=== PATIENT | male | born 1940 | race Caucasian/White ===

== ENCOUNTER 2016-11-07 07:14 | Day surgery (SDC) | payer MEDICARE, OTHER ==
[~2016-11-07] VITALS: Ht 188.1 cm; Wt 107.7 kg
[2016-11-07] VITALS (13 sets, daily range): BP systolic 111–155; BP diastolic 69–99; PULSE 67–78; TEMP 97.5
[~2016-11-07 07:14] MED LIST: ACIPHEX20 MG PO; ADVAIR 250/28 DISKUS IH; ALBUTEROL0.83 MG/ML IH; AMOXICILLIN/CLA1 TA1 PO; ASPIR-LOW81 MG PO; ASPIRIN 81M81 MG/TA2 PO; ATROVENT I0.2 MG/1 M IH; CELEBREX 200MG200 MG PO; COMBIVENT INH14.7 GM IH; COUMADIN; COUMADIN 1010 MG/TAB PO; COUMADIN 5MG5 MG/TAB PO; DIOVAN80 M1 PO; FLONASE NASAL S16 GM NS; FLONASEALLERGY NS; FLOVENT HF0.044 MG/A IH; IPRATROPIUM BROM3 M1 IH; LASIX 40MG TABL40 MG PO; LEVAQUIN 5500 MG/TA1 PO; LIPITOR 40MG TA40 MG PO; METOCLOPRAMIDE10 MG PO; MICARDIS20 MG PO; MICARDIS40 MG PO; MUCUS RELIEF DM1 TAB PO; NEXIUM 40MG40 MG PO; PHENERGAN 25 TA25 MG PO; PREDNISONE20 MG PO; REGLAN 10MG10 MG/TAB PO; RT ADVAIR 228 DISKUS IH; RT SPIRIVA18 MCG IH; SINGULAIR 110 MG/TAB PO; SINGULAIR10 MG PO; SPIRIVA INH IH; TOPROL XL 25MG25 MG PO; TOPROL XL100 MG PO; VITAMIN PO; ZOCOR 20MG20 MG PO
[2016-11-07 07:42] LABS: HEMATOCRIT 43.3 % (42.0-52.0); HEMOGLOBIN 14.1 g/dl (13.5-18.0); MEAN CELL VOLUME 87 fl (80.0-100.0); MEAN CORPUSCULAR HEMOGLOBIN 28 pg (27.0-31.0); MEAN CORPUSCULAR HGB CONC 33 g/dl (33.0-37.0); MEAN PLATELET VOLUME 9.5 fl (7.4-10.4); PLATELET COUNT 185 K/mm3 (130-400); RED BLOOD COUNT 4.96 M/mm3 (4.20-5.60); REDCELL DISTRIBUTION WIDTH-CV 13.8 % (11.5-14.5); WHITE BLOOD COUNT 4.8 K/mm3 (4.8-10.8)
[2016-11-07 07:49] LABS: INR 1.1 (0.8-3.0)
[2016-11-07 07:58] LABS: CALCIUM 9.6 mg/dL (8.4-10.2); CREATININE, serum 1.46 mg/dL (0.66-1.25); POTASSIUM 4.9 mmol/L (3.4-5.0)
[2016-11-07] MEDS ORDERED: RT SPIRIVA18 MCG IH (08:19)
[2016-11-07] MEDS ORDERED: COUMADIN 2MG2 MG/TAB PO (08:24)
== END 2016-11-07 17:10 | disposition home or self-care (01) ==
LOC: COL.CAR 07:14
PROVIDERS: Internal Medicine Cardiovascular Disease
DX: I25.10 Atherosclerotic heart disease of native coronary artery without angina pectoris (principal); R94.39 Abnormal result of other cardiovascular function study; Z95.5 Presence of coronary angioplasty implant and graft; I48.0 Paroxysmal atrial fibrillation; Z79.01 Long term (current) use of anticoagulants; E78.2 Mixed hyperlipidemia; I13.10 Hypertensive heart and chronic kidney disease without heart failure, with stage 1 through stage 4 chronic kidney disease, or unspecified chronic kidney disease; N18.4 Chronic kidney disease, stage 4 (severe); Z86.711 Personal history of pulmonary embolism; I35.8 Other nonrheumatic aortic valve disorders; G47.33 Obstructive sleep apnea (adult) (pediatric); I83.92 Asymptomatic varicose veins of left lower extremity; Z99.81 Dependence on supplemental oxygen; Z87.891 Personal history of nicotine dependence; H91.93 Unspecified hearing loss, bilateral; R73.01 Impaired fasting glucose
CPT/HCPCS: C1760; C1894; J2250; J3010; Q9967

== ENCOUNTER 2018-05-26 21:13 | Emergency (ER) | payer MEDICARE, OTHER ==
[~2018-05-26] VITALS: Ht 188 cm; Wt 105.5 kg
[~2018-05-26 21:13] MED LIST changes: +COUMADIN 2MG2 MG/TAB PO
[2018-05-26 21:19] VITALS: TEMP 97.6
[2018-05-26 22:02] LABS: BASO % 0.6 % (0.0-2.0); EOS % 0.6 % (0-4.0); GRAN # 4.3 (1.4-6.5); GRAN % 68.8 % (42.2-75.2); HEMOGLOBIN 11.2 g/dl (13.5-18.0); LYMPH # 1.3 (1.2-3.4); LYMPH % 20.8 % (20.0-51.0); MEAN CELL VOLUME 97 fl (80.0-100.0); MEAN CORPUSCULAR HEMOGLOBIN 31 pg (27.0-31.0); MEAN CORPUSCULAR HGB CONC 32 g/dl (33.0-37.0); MEAN PLATELET VOLUME 9.7 fl (7.4-10.4); MONO # 0.6 (0.1-0.6); MONO % 8.9 % (1.7-9.3); PLATELET COUNT 230 K/mm3 (130-400); RED BLOOD COUNT 3.63 M/mm3 (4.20-5.60); REDCELL DISTRIBUTION WIDTH-CV 13.5 % (11.5-14.5)
[2018-05-26 22:03] LABS: HEMATOCRIT 35.1 % (42.0-52.0)
[2018-05-26 22:04] LABS: INR 1.8 (0.8-3.0); PROTHROMBIN TIME 20.2 SECONDS (9.7-12.8)
[2018-05-26] MEDS ORDERED: FOSAMAX 70MG TA70 MG PO (22:07)
[2018-05-26] MEDS ORDERED: TOPROL XL 25MG25 MG PO (22:07)
[2018-05-26] MEDS ORDERED: ZANTAC 150MG T150 MG PO (22:08)
[2018-05-26] MEDS ORDERED: AZULFIDINE500 MG/TAB PO (22:08)
[2018-05-26 22:10] LABS: CALCIUM 9.2 mg/dL (8.4-10.2); CREATININE, serum 1.41 mg/dL (0.66-1.25); POTASSIUM 4.4 mmol/L (3.4-5.0)
[2018-05-27] MEDS ORDERED: NORCO 325 MG-51 TAB PO (00:24)
[2018-05-27 01:22] VITALS: BP 149/81; PULSE 81
== END 2018-05-27 01:20 | disposition home or self-care (01) ==
LOC: COL.ER 21:13
PROVIDERS: Emergency Medicine
DX: S01.81XA Laceration without foreign body of other part of head, initial encounter (principal); S41.112A Laceration without foreign body of left upper arm, initial encounter; S20.212A Contusion of left front wall of thorax, initial encounter; R91.1 Solitary pulmonary nodule; I10 Essential (primary) hypertension; I25.10 Atherosclerotic heart disease of native coronary artery without angina pectoris; Z79.01 Long term (current) use of anticoagulants; W18.39XA Other fall on same level, initial encounter; Y92.009 Unspecified place in unspecified non-institutional (private) residence as the place of occurrence of the external cause; Z79.51 Long term (current) use of inhaled steroids
CPT/HCPCS: A9284; Q9967

== ENCOUNTER → 2018-07-26 | Outpatient (CLI) | payer MEDICARE, OTHER ==
[~2018-07-26] VITALS: Ht 188 cm; Wt 111.1 kg
[2018-07-26] VITALS (15 sets, daily range): BP systolic 114–139; BP diastolic 67–92; PULSE 66–85; TEMP 97.5–98
[~2018-07-26] MED LIST changes: +AZULFIDINE500 MG/TAB PO; +FOSAMAX 70MG TA70 MG PO; +NORCO 325 MG-51 TAB PO; +ZANTAC 150MG T150 MG PO
[2018-07-26 09:59] LABS: INR 1.1 (0.8-3.0); PROTHROMBIN TIME 12.9 SECONDS (9.7-12.8)
--- NOTE | 2018-07-26 10:30 | NUR ---
PT BROUGHT INTO THE CT ROOM, MONITORING EQUIPMENT PLACED.
--- NOTE | 2018-07-26 10:35 | NUR ---
DR GILBERT PRESENT, TIMEOUT DONE.
--- NOTE | 2018-07-26 10:45 | NUR ---
PT DOING WELL. NO PAIN
--- NOTE | 2018-07-26 10:55 | NUR ---
PROCEDURE COMPLETED. MONITORING EQUIPMENT REMOVED. PT ASSISTED TO TRANSFER TO CART.
--- NOTE | 2018-07-26 11:12 | NUR ---
PT TRANSFERRED VIA BED TO EU ROOM 9. PT AWAKE, ALERT AND ORIENTED. PT DENIES ANY PAIN. PT ABLE TO TRANSFER TO EU BED WITHOUT DIFFICULTY. VS OBTAINED.
--- NOTE | 2018-07-26 11:19 | NUR ---
PT DID NOT RECEIVE ANY MEDICATION DURING CT LUNG BIOPSY.
--- NOTE | 2018-07-26 11:24 | NUR ---
NOTE FROM DR MEZA STATES PT MAY RESUME COUMADIN TONIGHT IF PROCEDURE UNEVENTFUL.
--- NOTE | 2018-07-26 11:24 | NUR ---
PT ABLE TO DRINK WATER WITHOUT DIFFICULTY.
--- NOTE | 2018-07-26 12:28 | NUR ---
PT SITTING UP IN BED, WATCHING TELEVISION. PT ALERT AND ORIENTED X3. PT DENIES ANY NEEDS AT THIS TIME.
--- NOTE | 2018-07-26 12:28 | NUR ---
PT AWAITING TO BE TAKEN BACK TO FRUIT LOADER MACHINE OPERATOR. PT DENIES ANY NEEDS AT THIS TIME.
--- NOTE | 2018-07-26 13:09 | NUR ---
RADIOLOGY PRESENT TO OBTAIN XRAY.
--- NOTE | 2018-07-26 13:26 | NUR ---
RECEIVED CALL FROM DR GILBERT. PT XRAY CLEAR. PT CAN BE DISCHARGED.
--- NOTE | 2018-07-26 13:41 | NUR ---
PT'S IV TO LEFT FOREARM REMOVED. PT ATE LUNCH WITHOUT DIFFICULTY. PT GETTING DRESSED AT THIS TIME.
--- NOTE | 2018-07-26 13:55 | NUR ---
DISCHARGE INSTRUCTIONS REVIEWED WITH PATIENT. EDUCATIONAL MATERIAL PROVIDED REGARDING CT LUNG BIOPSY. PT VERBALIZED UNDERSTANDING. ESCORTED PT TO FRONT ENTRANCE WHERE SON AWAITED. PT INSISTED ON WALKING WITH HIS WALKER TO ENTRANCE. PT AMBULATED WITHOUT DIFFICULTY. PT'S BELONGINGS TRANSFERRED WTIH PATIENT.
== END ==
LOC: COL.RAD 09:19
PROVIDERS: Internal Medicine Pulmonary Disease
DX: R91.8 Other nonspecific abnormal finding of lung field (principal)

== ENCOUNTER → 2018-07-31 | Outpatient (CLI) | payer MEDICARE, OTHER | LOC: COL.RAD 10:22 | DX: Z01.812 Encounter for preprocedural laboratory examination (principal); C34.90 Malignant neoplasm of unspecified part of unspecified bronchus or lung; J34.89 Other specified disorders of nose and nasal sinuses; G93.89 Other specified disorders of brain | CPT/HCPCS: A9585 ==

== ENCOUNTER 2018-08-14 08:22 | Day surgery (SDC) | payer MEDICARE, OTHER ==
[~2018-08-14] VITALS: Ht 187.9 cm; Wt 111.4 kg
[2018-08-14 09:21] VITALS: BP 113/61; PULSE 76; TEMP 98.2
[2018-08-14] MEDS ORDERED: MULTI VITAMINS1 TAB PO (09:42)
[2018-08-14] MEDS ORDERED: MUCUS RELIEF200 MG PO (09:48)
[2018-08-14] MEDS ORDERED: PROAIR HFA0.09 MG/AC IH (09:48)
[2018-08-14] MEDS ORDERED: PREDNISONE 5MG5 MG PO ×2 (09:50→09:51)
[2018-08-14 09:54] LABS: INR 1.8 (0.8-3.0); PROTHROMBIN TIME 21.2 SECONDS (9.7-12.8)
[2018-08-14 10:30] VITALS: BP 100/60; PULSE 76; TEMP 97.9
--- NOTE | 2018-08-14 10:30 | NUR ---
Patient brought back to bay 6. Vital signs stable. Alert and oritented x4. No cough noted. Denies any pain or nausea. States he would like a muffin and water. Tolerating food and drink well. Call pitts within reach, will continue to monitor.
[2018-08-14 10:45] VITALS: BP 120/67; PULSE 70
--- NOTE | 2018-08-14 10:45 | NUR ---
MD called in order to get discharge orders. states that he may take coumadin as normally scheduled.
--- NOTE | 2018-08-14 10:45 | NUR ---
Patient states he is feeling well and ready to go home. Vital signs remain stable at this time. Will conitnue to monitor.
[2018-08-14 11:00] VITALS: BP 105/74; PULSE 71
--- NOTE | 2018-08-14 11:00 | NUR ---
Vital signs stable. Patient states he is feeling well and ready to go home. Son called and informed to have patient be picked up. Discharge instructions reviewed with patient, all questions answered. IV discontinued per MD orders. Patient instructed that he may continue meds including coumadin as normally scheduled. Patient to get dressed at this time.
--- NOTE | 2018-08-14 11:24 | NUR ---
Patient wheeled down to [facility]. Patient has his own portable oxygen. To be driven home by eileen Pichardo.
--- NOTE | 2018-08-14 11:41 | NUR ---
Initial visit; Patient thanked Web Editor for offering God's blessings prior to his surgical procedure.
== END 2018-08-14 11:24 | disposition home or self-care (01) ==
LOC: SDCO 08:22
PROVIDERS: Internal Medicine Critical Care Medicine
DX: C34.12 Malignant neoplasm of upper lobe, left bronchus or lung (principal); J84.10 Pulmonary fibrosis, unspecified; G47.33 Obstructive sleep apnea (adult) (pediatric); Z99.81 Dependence on supplemental oxygen; Z86.711 Personal history of pulmonary embolism; I10 Essential (primary) hypertension; E78.00 Pure hypercholesterolemia, unspecified; Z87.891 Personal history of nicotine dependence; Z79.899 Other long term (current) drug therapy; Z79.82 Long term (current) use of aspirin; Z79.01 Long term (current) use of anticoagulants; Z95.5 Presence of coronary angioplasty implant and graft; I25.10 Atherosclerotic heart disease of native coronary artery without angina pectoris; K21.9 Gastro-esophageal reflux disease without esophagitis
CPT/HCPCS: J2704

== ENCOUNTER 2019-03-08 09:43 | Outpatient (CLI) | payer MEDICARE, OTHER ==
[2019-03-08] VITALS (13 sets, daily range): BP systolic 100–141; BP diastolic 64–85; PULSE 63–95
[~2019-03-08] VITALS: Ht 187.9 cm; Wt 114.3 kg
[~2019-03-08 09:43] MED LIST changes: +MUCUS RELIEF200 MG PO; +MULTI VITAMINS1 TAB PO; +PREDNISONE 5MG5 MG PO; +PROAIR HFA0.09 MG/AC IH
[2019-03-08] MEDS ORDERED: IPRATROPIUM BROM3 M1 IH (10:25)
[2019-03-08 11:13] LABS: INR 1.2 (0.8-3.0); PROTHROMBIN TIME 14.1 SECONDS (9.7-12.8)
--- NOTE | 2019-03-08 11:25 | NUR ---
PT PLACED ON LEFT LATERAL SIDE. 02 @ 3L/NC. MONITORING EQUIPMENT PLACED. IMAGES TAKEN AND SENT
--- NOTE | 2019-03-08 11:55 | NUR ---
Pt to EU 9 per w/c s/p lung bx. Pt resting well, family at bedside.
--- NOTE | 2019-03-08 11:55 | NUR ---
Pt is on O2 2L per NC at home. Pt currently on O2 2L per NC. Pt denies pain/soa.
--- NOTE | 2019-03-08 12:43 | NUR ---
THREE SAMPLES TAKEN AND PLACED INTO FORMALIN. PT IS DOING WELL. NO PAIN, COUGHING OR COLLAPSED LUNG. ALL MONITORING EQUIPMENT REMOVED. PT ASSISTED INTO WHEELCHAIR.
--- NOTE | 2019-03-08 14:28 | NUR ---
Pt has ambulated, voided and caroline PO intake s n/v. PIV removed with catheter intact.
--- NOTE | 2019-03-08 14:35 | NUR ---
Pt discharged per w/c by nurse with son.
== END 2019-03-08 15:09 | disposition home or self-care (01) ==
LOC: COL.RAD 09:43
PROVIDERS: Radiology Diagnostic Radiology
DX: C34.12 Malignant neoplasm of upper lobe, left bronchus or lung (principal); I10 Essential (primary) hypertension
CPT/HCPCS: 32107

== ENCOUNTER 2019-04-18 09:05 | Inpatient (IN) | payer MEDICARE, OTHER ==
[~2019-04-18] VITALS: Ht 185.4 cm; Wt 112.2 kg
[2019-04-18] VITALS (508 sets, daily range): BP systolic 125–135; BP diastolic 82–96; PULSE 91–98; TEMP 97.3–98; O2SAT 82–100
[2019-04-18 09:22] LABS: BASO % 0.2 % (0.0-2.0); GRAN # 9.5 (1.4-6.5); GRAN % 89.7 % (42.2-75.2); HEMATOCRIT 40.3 % (42.0-52.0); HEMOGLOBIN 12.1 g/dl (13.5-18.0); LYMPH # 0.5 (1.2-3.4); LYMPH % 4.3 % (20.0-51.0); MEAN CELL VOLUME 96 fl (80.0-100.0); MEAN CORPUSCULAR HEMOGLOBIN 29 pg (27.0-31.0); MEAN CORPUSCULAR HGB CONC 30 g/dl (33.0-37.0); MEAN PLATELET VOLUME 11.2 fl (7.4-10.4); MONO # 0.5 (0.1-0.6); PLATELET COUNT 198 K/mm3 (130-400); RED BLOOD COUNT 4.18 M/mm3 (4.20-5.60); REDCELL DISTRIBUTION WIDTH-CV 14.8 % (11.5-14.5)
[2019-04-18 09:41] LABS: ARTERIAL BLD GAS O2 SATURATION 94.3 % (92-100); ARTERIAL BLD GAS TCO2 CT 18.2; ARTERIAL BLOOD GAS BASE EXCESS -8.8 (-2-2); ARTERIAL BLOOD GAS HCO3 17.1 meq/L (22-26); ARTERIAL BLOOD GAS PCO2 36.7 mmHg (35-45); ARTERIAL BLOOD GAS PO2 82.9 mmHg (80-100); ARTERIAL BLOOD GAS pH 7.29 (7.35-7.45)
[2019-04-18 10:05] LABS: ALBUMIN 3.5 gm/dL (3.5-5.0); BILIRUBIN,TOTAL 1.5 mg/dL (0.0-1.0); C-REACTIVE PROTEIN 7.5 mg/dL (0.0-0.9); CALCIUM 9.3 mg/dL (8.4-10.2); CREATININE, serum 1.81 (0.66-1.25)
[2019-04-18 10:16] LABS: TROPONIN-I 0.056 ng/mL (0.000-0.035)
[2019-04-18 11:24] LABS: PROTHROMBIN TIME 124.5 SECONDS (9.7-12.8)
[2019-04-18 11:26] LABS: INR 9.9 (0.8-3.0)
--- NOTE | 2019-04-18 13:17 | NUR ---
MD Shahab notified pt arrival
[2019-04-18] MEDS ORDERED: PEPCID 20MG TAB20 MG PO (14:12)
--- NOTE | 2019-04-18 17:56 | NUR ---
Vancomycin Initial Dosing Pharmacy Note Ordering provider: Fe Gudino W., MD Indication/duration: possible pneumonia Relevant comorbidities: LABS: Crea= 1.81, est CrCl of 42 mL/min Recommendation: 1.5 gram load, then 1 gram IV q12h. Trough on 04/20 at 17:30. Loading dose: 1.5 grams Maintenance dose: 1 gram every 12 hours Trough goal: 15-20 ug/mL
[2019-04-19] VITALS (1081 sets, daily range): BP systolic 97–135; BP diastolic 72–91; PULSE 94–111; TEMP 97.4–97.8; O2SAT 75–100
[2019-04-19 05:21] LABS: BASO % 0.1 % (0.0-2.0); GRAN % 93.9 % (42.2-75.2); HEMOGLOBIN 11.2 g/dl (13.5-18.0); LYMPH # 0.3 (1.2-3.4); LYMPH % 2.9 % (20.0-51.0); MEAN CELL VOLUME 94 fl (80.0-100.0); MEAN CORPUSCULAR HEMOGLOBIN 29 pg (27.0-31.0); MEAN CORPUSCULAR HGB CONC 30 g/dl (33.0-37.0); MEAN PLATELET VOLUME 10.7 fl (7.4-10.4); MONO # 0.3 (0.1-0.6); MONO % 2.7 % (1.7-9.3); PLATELET COUNT 164 K/mm3 (130-400); RED BLOOD COUNT 3.91 M/mm3 (4.20-5.60); REDCELL DISTRIBUTION WIDTH-CV 14.6 % (11.5-14.5)
[2019-04-19 05:25] LABS: HEMATOCRIT 36.9 % (42.0-52.0)
[2019-04-19 05:30] LABS: ALBUMIN 3.1 gm/dL (3.5-5.0); BILIRUBIN,TOTAL 0.9 mg/dL (0.0-1.0); CALCIUM 8.5 mg/dL (8.4-10.2); CREATININE, serum 1.57 (0.66-1.25); TOTAL PROTEIN 7.1 gm/dL (6.4-8.2)
[2019-04-19 05:46] LABS: ARTERIAL BLD GAS O2 SATURATION 94.8 % (92-100); ARTERIAL BLD GAS TCO2 CT 23.7; ARTERIAL BLOOD GAS BASE EXCESS -2.3 (-2-2); ARTERIAL BLOOD GAS HCO3 22.5 meq/L (22-26); ARTERIAL BLOOD GAS PCO2 38.6 mmHg (35-45); ARTERIAL BLOOD GAS PO2 77.7 mmHg (80-100); ARTERIAL BLOOD GAS pH 7.38 (7.35-7.45)
[2019-04-19 05:50] LABS: INR 13.3 (0.8-3.0); PROTHROMBIN TIME 169.6 SECONDS (9.7-12.8)
--- NOTE | 2019-04-19 05:50 | NUR ---
Critical PT of 169.6 and inr of 13.3 reported to [facility]. no new orders given at this time.
--- NOTE | 2019-04-19 07:00 | NUR ---
BEDSIDE REPORT RECEIVED FROM MARGA DURHAM
--- NOTE | 2019-04-19 08:45 | NUR ---
ATTEMPTED TO REMOVE BIPAP AND PLACE PATIENT ON 9L/MIN OXYMASK. HE WAS OFF BIPAP FOR ABOUT 5 MINUTES AND ONLY MAINTAINED SPO2 OF 80-85%. PATIENT PLACED BACK ON BIPAP AND SPO2 CAME BACK UP TO 95%
--- NOTE | 2019-04-19 10:30 | NUR ---
THIS RN ASKED DR. NGUYEN IF PATIENT MAY DO BETTER WITH AIRVO. HE GIVES PERMISSION TO TRY AIRVO AND IF PATIENT IS MORE COMFORTABLE, THEN HE MAY STAY ON IT. RTYAEL, NOTIFIED OF THIS.
--- NOTE | 2019-04-19 11:08 | NUR ---
PACED PT ON AIRVO FIO2 50% 40LPM SPO2 94% HR 100 RR 22
--- NOTE | 2019-04-19 12:33 | NUR ---
Met with son Luis before and after team rounding. Luis does see improvement in his father's state and would like to continue supportive care at this time. Luis cared for his mother on hospice services last year until her in the home. Luis is aware that his father's life expectancy with the diagnosis of advanced lung cancer/COPD and with his recent collapse at home requiring CPR is short. He does not believe that his father would want aggressive treatment but is still continuing with antibiotics, bipap, IV fluids and did recieve Vit K for a very high INR. I did verify that [facility] will provide a bipap/trilogy for hospice care of a pt with a pulmonary diagnosis with Crystal at their office. Dr Chow did give son goal of reaching a plan for care today.
--- NOTE | 2019-04-19 13:44 | NUR ---
PAT alfred met with the patient and the patient's son, Luis to complete initial assessment. The patient lives in [facility] with Luis. The patient is on 3L of oxygen, has a CPAP, walker, transportation chair and for the past year has had sponge baths. The patient's PCP is Dr. Rollins and patient receives medications from [facility]. A pallative care consult was ordered for the patient. The patient's son reports they have had [facility] with the patient's and would like [facility] to care for the patient. The patient's son spoke to [facility] reports they can accommodate the BiPAP for the patient. PAT alfred spoke to Los with [facility] and they can support the BiPAP. PAT alfred faxed patient information to [facility]. PAT alfred collaborated the above information with the team and will continue to follow.
--- NOTE | 2019-04-19 15:33 | NUR ---
Los from [facility] reports they can accept the patient for hospice at home. fiscal services manager will continue to follow.
--- NOTE | 2019-04-19 15:41 | NUR ---
Advised per social services coordinator that decision has been made to proceed with hospice care at home with [facility] and that information has been provided. My last conversation with son involved questions about support of the caregiver, and extra support to help with 24hr/day coverage. I did discuss this as a concern with Los from [facility] when he inquired about the patient. Family is planning on supporting pt at home with bipap and this has been approved by [facility] I am told. Social work is managing this discharge.
--- NOTE | 2019-04-19 19:15 | NUR ---
REPORT GIVEN TO MARGA DELGADO. PATIENT ON BIPAP, GETTING BREATHING TREATMENT. CARE TURNED OVER AT THIS TIME.
--- NOTE | 2019-04-19 22:22 | NUR ---
Nurse heard alarm going off in patients room for low pulse oximetry. Upon entering room, patient was slumped over in bed with oxygen via AirVo pulled off and was cyanotic with blood running from his right arm. SARTHAK Yu and MARGA Reeves came in to room to help stabilize patient and place on Bipap. Patient responsive 20-30 seconds after placing on Bipap. Patient was observed to be incontient of stool. Patient became combative with staff, unable to be re-oriented. Multiple staff members in room at this time, attempting to assist with stabilizing patient. SARTHAK Yu notified son Luis of patient condition, stated he is on his way to see patient. Bed alarm in place, will contineut o monitor patient at this time.
--- NOTE | 2019-04-19 23:10 | NUR ---
Patient son, Luis came in to see patient. Patient has now become more coherent, able to state "he thought he was at home and was taking his CPAP off." Will continue to monitor.
[2019-04-20] VITALS (1283 sets, daily range): BP systolic 99–130; BP diastolic 62–90; PULSE 93–104; TEMP 97.8–98; O2SAT 31–100
[2019-04-20 05:25] LABS: CALCIUM 8.3 mg/dL (8.4-10.2); CREATININE, serum 1.76 (0.66-1.25); POTASSIUM 3.9 mmol/L (3.4-5.0); TOTAL PROTEIN 6.9 gm/dL (6.4-8.2)
[2019-04-20 05:27] LABS: GRAN # 7.9 (1.4-6.5); GRAN % 94.1 % (42.2-75.2); HEMOGLOBIN 10.5 g/dl (13.5-18.0); INR 2.2 (0.8-3.0); LYMPH # 0.2 (1.2-3.4); LYMPH % 2.5 % (20.0-51.0); MEAN CELL VOLUME 95 fl (80.0-100.0); MEAN CORPUSCULAR HEMOGLOBIN 29 pg (27.0-31.0); MEAN CORPUSCULAR HGB CONC 31 g/dl (33.0-37.0); MEAN PLATELET VOLUME 10.3 fl (7.4-10.4); MONO # 0.2 (0.1-0.6); MONO % 2.8 % (1.7-9.3); PLATELET COUNT 163 K/mm3 (130-400); PROTHROMBIN TIME 26.5 SECONDS (9.7-12.8); RED BLOOD COUNT 3.62 M/mm3 (4.20-5.60); REDCELL DISTRIBUTION WIDTH-CV 14.6 % (11.5-14.5)
[2019-04-20 05:30] LABS: HEMATOCRIT 34.3 % (42.0-52.0)
--- NOTE | 2019-04-20 07:20 | NUR ---
Report received from Dennys GRESHAM and care transfered.
--- NOTE | 2019-04-20 19:14 | NUR ---
Report given to Lala GRESHAM and care transfered.
--- NOTE | 2019-04-20 19:30 | NUR ---
Assessment complete; patient alert and oriented. Denies any pain at this time. Reports orthopnea, but denies feeling short of breath during assessment. Patient requested bandgages to skin tears on arms be changed. Removed old dressing and replaced with steri-strips and bandaids as needed. RT at bedside to see patient also. Will continue to monitor.
--- NOTE | 2019-04-20 21:40 | NUR ---
Called on-call pharmacist regarding vanco trough; ok to continue with current ordered dose.
[2019-04-21] VITALS (647 sets, daily range): BP systolic 101–125; BP diastolic 59–86; PULSE 95–111; TEMP 97.3–98.7; O2SAT 75–100
--- NOTE | 2019-04-21 04:45 | NUR ---
Removed BIPAP and replaced Airvo per patient request. Assisted with oral care. Patient easilly becomes short of breath with minimal activity. Will continue to monitor.
--- NOTE | 2019-04-21 07:15 | NUR ---
Bedside report given to MARGA Gooden. Patient care transfered.
--- NOTE | 2019-04-21 08:00 | NUR ---
Shift assessment complete at this time. Plan of care reviewed at bedside with patient. Additional time taken to address any other needs or concerns. Vitals stable at this time. Pt reports mile R side pain that alleviated after repositioning onto L side. Denies any other pains or discomforts at this time. Bed in low position, call light within reach, will continue to monitor.
[2019-04-21 09:38] LABS: HEMATOCRIT 32.7 % (42.0-52.0); HEMOGLOBIN 10.1 g/dl (13.5-18.0); MEAN CELL VOLUME 94 fl (80.0-100.0); MEAN CORPUSCULAR HEMOGLOBIN 29 pg (27.0-31.0); MEAN CORPUSCULAR HGB CONC 31 g/dl (33.0-37.0); MEAN PLATELET VOLUME 9.9 fl (7.4-10.4); PLATELET COUNT 136 K/mm3 (130-400); RED BLOOD COUNT 3.48 M/mm3 (4.20-5.60); REDCELL DISTRIBUTION WIDTH-CV 14.6 % (11.5-14.5)
[2019-04-21 09:52] LABS: CALCIUM 8.3 mg/dL (8.4-10.2); CREATININE, serum 1.32 (0.66-1.25); POTASSIUM 4.2 mmol/L (3.4-5.0)
--- NOTE | 2019-04-21 16:00 | NUR ---
Pt resting comfortably in bed. Denies pain or any other discomforts. Vitals stable at this time. Bed in low position, call light within reach, will continue to monitor.
--- NOTE | 2019-04-21 17:30 | NUR ---
PATIENT TO ROOM 309. SON IS AT BEDSIDE. ASSESSMENT COMPLETED. NUMEROUS SKIN TEARS TO BOTH ARMS.
--- NOTE | 2019-04-21 18:15 | NUR ---
IV IS LEAKING. STOPPED AND DCD WITH CATH INTACT. WILL RESTART
--- NOTE | 2019-04-21 19:53 | NUR ---
ASSESSMENT COMPLETE. 02 PER AIRVO. ROBERTS PATENT TO DD. DENIES PAIN. DENIES NEEDS AT THIS TIME.
[2019-04-22 03:05] VITALS: BP 117/69; PULSE 99; TEMP 97.7
[2019-04-22 06:22] LABS: HEMOGLOBIN 10.4 g/dl (13.5-18.0); MEAN CELL VOLUME 94 fl (80.0-100.0); MEAN CORPUSCULAR HEMOGLOBIN 29 pg (27.0-31.0); MEAN CORPUSCULAR HGB CONC 31 g/dl (33.0-37.0); MEAN PLATELET VOLUME 10.6 fl (7.4-10.4); PLATELET COUNT 143 K/mm3 (130-400); RED BLOOD COUNT 3.58 M/mm3 (4.20-5.60); REDCELL DISTRIBUTION WIDTH-CV 14.7 % (11.5-14.5)
[2019-04-22 06:23] LABS: ALBUMIN 2.8 gm/dL (3.5-5.0); BILIRUBIN,TOTAL 0.9 mg/dL (0.0-1.0); CALCIUM 8.5 mg/dL (8.4-10.2); CREATININE, serum 1.4 (0.66-1.25); POTASSIUM 4.3 mmol/L (3.4-5.0); TOTAL PROTEIN 6.4 gm/dL (6.4-8.2)
[2019-04-22 06:41] LABS: HEMATOCRIT 33.6 % (42.0-52.0)
[2019-04-22 07:40] LABS: BAND 6 % (0-10); LYMPHOCYTE 9 % (20.0-51.0); NEUTROPHILS 81 % (42.0-75.2); PLATELET ESTIMATE NORMAL (NORMAL)
[2019-04-22 07:57] VITALS: BP 116/60; PULSE 97; TEMP 97.7
[2019-04-22 08:02] LABS: INR 1.9 (0.8-3.0)
--- NOTE | 2019-04-22 10:07 | NUR ---
Assessment complete. Patient resting in bed at this time. Speaks very minimally but is pleasant. IV site CD&I, flushed well. High flow oxygen still flowing. zosyn running at 25 ml/hr. Lungs were very coarse at the bases, diminshed in the upper lobes. Pitting 2+ in his lower extremities but no pain or tenderness with palpation. Pt denied knee pain at this time. Water was provided per request. No further needs expressed at this time. Call light is in reach.
--- NOTE | 2019-04-22 10:30 | NUR ---
Initial visit; Patient thanked Blue Crabber for looking in on him and offering God's blessings.
--- NOTE | 2019-04-22 10:41 | NUR ---
Contacted son Luis who is also DPOA-HC about goals of care at this point. Currently Nixon is improving and son would like to continue with current treatment. Pt is enjoying the morning, feeling better by his report. Son will be up here later this morning and Dr Nino and the treatment team were advised of the results from this call.
--- NOTE | 2019-04-22 12:02 | NUR ---
Warfarin Initial Dosing Pharmacy Note Ordering Provider: Fe Gudino W., MD Indication: VTE Prophylaxis LABS: INR 1.9 Recommendation: Will restart Warfarin at 6 mg po qHS. Pharmacy will continue to monitor daily INR levels. Home Regimen: Warfarin 12 mg po qHS
[2019-04-22 12:28] VITALS: BP 103/65; PULSE 93; TEMP 98.6
--- NOTE | 2019-04-22 14:19 | NUR ---
Currently pt and family would like to complete current treatment. Pt is willing to work with physical therapy to try to get stronger and is aware that this may be a long process. Available options, including hospice with [facility] in the home were discussed along with rehab stay in local assisted or home health services if desired based on their goal. Right now they would like to see how he does over the next few days before deciding. [facility] is aware of possible discharge to home with hospice after son spoke with them and they recieved information from case management.
--- NOTE | 2019-04-22 16:11 | NUR ---
Water Systems Engineer spoke with Ameena, Palliative RN and Estefanía, Nurse Practitioner and at this time, patient and family would like to continue with treatment vs comfort care. SW notified Los at [facility] that patient will not discharge home with hospice today and will keep him updated. PT/OT ordered for patient. SW met with patient to review PT/OT recommendation for SNF vs Home with Home Health. SW provided Medicare.gov list of SNF's and HH agencies in patient's geographic location. VERONIKA will follow up on patient choice.
[2019-04-22 16:52] VITALS: BP 108/69; PULSE 102; TEMP 98.5
[2019-04-22 19:14] VITALS: BP 101/60; PULSE 97; TEMP 98
--- NOTE | 2019-04-22 20:04 | NUR ---
ASSESSMENT COMPLETE. RESTING IN BED, WATCHING TV. AIRVO PER HIGH FLOW N/C. ARMANDO TO VALERIE. DENIES NEEDS AT THIS TIME.
[2019-04-22 23:39] VITALS: BP 115/65; PULSE 94; TEMP 97.4
[2019-04-23 03:28] VITALS: BP 101/66; PULSE 87; TEMP 98.7
[2019-04-23 06:15] LABS: HEMOGLOBIN 10.7 g/dl (13.5-18.0); MEAN CELL VOLUME 93 fl (80.0-100.0); MEAN CORPUSCULAR HEMOGLOBIN 29 pg (27.0-31.0); MEAN CORPUSCULAR HGB CONC 31 g/dl (33.0-37.0); MEAN PLATELET VOLUME 10.3 fl (7.4-10.4); PLATELET COUNT 148 K/mm3 (130-400); RED BLOOD COUNT 3.67 M/mm3 (4.20-5.60); REDCELL DISTRIBUTION WIDTH-CV 14.7 % (11.5-14.5)
[2019-04-23 06:25] LABS: INR 1.7 (0.8-3.0); PROTHROMBIN TIME 19.6 SECONDS (9.7-12.8)
[2019-04-23 06:26] LABS: HEMATOCRIT 34.2 % (42.0-52.0)
[2019-04-23 06:39] LABS: ALBUMIN 2.8 gm/dL (3.5-5.0); CALCIUM 8.7 mg/dL (8.4-10.2); CREATININE, serum 1.42 (0.66-1.25); POTASSIUM 4.2 mmol/L (3.4-5.0); TOTAL PROTEIN 6.3 gm/dL (6.4-8.2)
--- NOTE | 2019-04-23 08:00 | NUR ---
Patient resting in bed at this time. Patient rouses easily and responds appropriately while awake. Melo in place per order. Patient remains on Airvo at 10L. Patient denies pain or needs at this time, call light within reach.
[2019-04-23 08:01] LABS: BAND 4 % (0-10); HYPOCHROMIA 2+; LYMPHOCYTE 12 % (20.0-51.0); MYELOCYTE 0 % (0-0); NEUTROPHILS 83 % (42.0-75.2)
[2019-04-23 08:02] LABS: PLATELET ESTIMATE NORMAL (NORMAL); TOXIC GRANULATION PRESENT
[2019-04-23 08:30] VITALS: BP 87/56; PULSE 101; TEMP 97.8
[2019-04-23 12:18] VITALS: BP 103/60; PULSE 88; TEMP 98.8
--- NOTE | 2019-04-23 16:02 | NUR ---
Newsroom Intern spoke with Hospitalist and Estefanía, Nurse Practitioner who would like for patient to consider referral to [facility] in [place]. Estefanía followed up with SW and advised that patient declined at this time but that family would like for patient to consider [facility]. Family will have this discussion with patient. SW will not send referral at this time as patient is not in agreeance. SW to continue to follow.
--- NOTE | 2019-04-23 17:13 | NUR ---
Patient remains alert and oriented at this time. Melo in place per order, patient on O2 at 8L via high flow NC. Patient continues to deny pain or needs, call light within reach.
[2019-04-23 17:30] VITALS: BP 133/69; PULSE 94; TEMP 98.5
--- NOTE | 2019-04-23 19:05 | NUR ---
Report rcvd from MINERVA Beckham. Pt is laying in bed with 8L o2 via High Flow NC. Pt has no pain, and voices no concerns at this time. Assessment complete. No further concerns at this time.
[2019-04-23 20:34] VITALS: BP 119/56; PULSE 88; TEMP 98.5
[2019-04-24 00:20] VITALS: BP 131/71; PULSE 92; TEMP 98
[2019-04-24 03:05] VITALS: BP 114/67; PULSE 87; TEMP 98
[2019-04-24 08:05] VITALS: BP 132/72; PULSE 80; TEMP 97.5
[2019-04-24 08:14] LABS: INR 1.4 (0.8-3.0); PROTHROMBIN TIME 16.8 SECONDS (9.7-12.8)
[2019-04-24 08:20] LABS: BILIRUBIN,TOTAL 1.1 mg/dL (0.0-1.0); CALCIUM 8.7 mg/dL (8.4-10.2); CREATININE, serum 1.32 (0.66-1.25); POTASSIUM 4.5 mmol/L (3.4-5.0); TOTAL PROTEIN 6.8 gm/dL (6.4-8.2)
--- NOTE | 2019-04-24 08:30 | NUR ---
Assessment complete. Pt sitting up in bed, A&O x 3. Breath sounds diminished throughout all lung edwards. O2 8 L/min via Hi flow NC. Pt denies pain at this time. Saline lock IV to right forearm patent without s/s of complications. No further needs reported. Call light in reach.
--- NOTE | 2019-04-24 11:47 | NUR ---
Warfarin Follow-up Pharmacy Note Current regimen: Warfarin 6 mg po qHS LABS: INR 1.4 Changes in therapy: Will increase Warfarin to 8 mg po qHS. Pharmacy will continue to montior and check daily INR levels.
[2019-04-24 11:55] VITALS: BP 116/61; PULSE 95; TEMP 98.4
--- NOTE | 2019-04-24 15:47 | NUR ---
Sanitation Director attended clinical rounds with the team and patient states he is agreeable to referral being sent to [facility] in [place]. SW met with patient and presented list of [facility] and patient selected [facility] in . VERONIKA contacted Ryder at [facility] and faxed a referral. Ryder will be here tomorrow morning to meet with patient. VERONIKA provided update to patient's son, Luis. VERONIKA to continue to follow.
[2019-04-24 16:05] VITALS: BP 111/62; PULSE 101; TEMP 98.3
--- NOTE | 2019-04-24 18:00 | NUR ---
Pt resting in bed, uneventful shift, denies needs at this time. Call light in reach.
--- NOTE | 2019-04-24 19:35 | NUR ---
Patient assessed at this time. Alert and oriented x 4, and able to make needs known. Denies having pain and discomfort. Peripheral IV to right forearm. Site flushed and without redness, warmth, swelling, and pain. Does report SOB and dyspnea. On oxygen at 9 L/min via high flow NC. Respirations even and unlabored. LS CTA in upper, diminished in lower. HRR. Telemetry in place: sinus. Capillary refill less than 3 seconds. Non-tenting skin turgor. BSAx4. Abodmen soft and non-tender. Indwelling mai catheter with clear yellow urine via dependent drainage. Dressing to skin tear on right elbow CDI. 3+ edema BLE. Voices no questions, needs, or concerns at this time. Resting in bed with call light within reach.
[2019-04-24 20:26] VITALS: BP 121/59; PULSE 106; TEMP 98.5
[2019-04-25 00:30] VITALS: BP 114/65; PULSE 93; TEMP 97.5
[2019-04-25 03:47] VITALS: BP 113/69; PULSE 94; TEMP 98
--- NOTE | 2019-04-25 05:39 | NUR ---
Patient has denied having pain and discomfort throughout this shift. Received scheduled antibiotics per orders. Voices no further questions, needs, or concerns at this time. Continues on oxygen at 9 L/min via high flow NC. Resting in bed with call light within reach.
[2019-04-25 06:13] LABS: BASO % 0.1 % (0.0-2.0); EOS # 0.1 (0.0-0.7); EOS % 1.3 % (0-4.0); GRAN # 8.2 (1.4-6.5); GRAN % 86.3 % (42.2-75.2); HEMOGLOBIN 11.2 g/dl (13.5-18.0); LYMPH # 0.7 (1.2-3.4); LYMPH % 6.9 % (20.0-51.0); MEAN CELL VOLUME 95 fl (80.0-100.0); MEAN CORPUSCULAR HEMOGLOBIN 29 pg (27.0-31.0); MEAN CORPUSCULAR HGB CONC 31 g/dl (33.0-37.0); MEAN PLATELET VOLUME 10.8 fl (7.4-10.4); MONO # 0.4 (0.1-0.6); MONO % 4.5 % (1.7-9.3); PLATELET COUNT 157 K/mm3 (130-400); RED BLOOD COUNT 3.82 M/mm3 (4.20-5.60); REDCELL DISTRIBUTION WIDTH-CV 15.6 % (11.5-14.5)
[2019-04-25 06:14] LABS: INR 1.4 (0.8-3.0); PROTHROMBIN TIME 16.8 SECONDS (9.7-12.8)
[2019-04-25 06:18] LABS: HEMATOCRIT 36.2 % (42.0-52.0)
[2019-04-25 06:22] LABS: ALBUMIN 2.7 gm/dL (3.5-5.0); BILIRUBIN,TOTAL 0.6 mg/dL (0.0-1.0); CREATININE, serum 1.48 (0.66-1.25); POTASSIUM 4.9 mmol/L (3.4-5.0); TOTAL PROTEIN 6.4 gm/dL (6.4-8.2)
--- NOTE | 2019-04-25 06:55 | NUR ---
Report given to day shift nurse.
[2019-04-25 07:20] VITALS: BP 124/69; PULSE 90; TEMP 97.6
--- NOTE | 2019-04-25 07:41 | NUR ---
REMOVED AIRVO2 HIFLOW FRJOM ROOM. PATIENT DOING WELL ON HIFLOW CANNULA.
--- NOTE | 2019-04-25 09:00 | NUR ---
Assessment complete. Pt resting in bed, A&O x 3. Breath sounds diminished throughout all lung ewdards. Pt denies pain, respirations more relaxed than previous. O2 at 7 L/min via hi flow NC. Saline lock IV to right forearm without s/s of complications. POC reviewed with pt. No further needs reported. Call light in reach.
[2019-04-25 12:23] VITALS: BP 108/57; PULSE 97; TEMP 97.3
--- NOTE | 2019-04-25 12:48 | NUR ---
Report given to MARGA Gutiérrez.
--- NOTE | 2019-04-25 14:15 | NUR ---
Patient transfered by EMS to SNF. Patients brief changed by nursing staff, patient had a medium BM. IV site in right forearm and not removed with transfer. Discharge packet with EMS. VSS 8L NC O2, no reported SOB. No further needs expressed from patient. Personal belongings with EMS. Son at the bedside
--- NOTE | 2019-04-25 17:26 | NUR ---
Phlebotomy Manager was notified by Ryder at [facility] that they can accept patient today. VERONIKA spoke with patient and patient's son who were both in agreeance. VERONIKA presented and explained IM form to patient who verbalized understanding and provided signature. VERONIKA placed form on chart. VERONIKA contacted [facility] and set up transportation for 1400. VERONIKA placed completed and signed EMS forms on patient's chart. VERONIKA faxed discharge orders to [facility]. No additional needs at this time.
== END 2019-04-25 14:15 | disposition short-term general hospital (02) | DRG 205 ==
LOC: COL.ER 09:05 → ICU 11:15 → MEDICAL 11:15 → ICU 11:34 → MEDICAL 04-21 17:39
PROVIDERS: Emergency Medicine; Family Medicine; Nurse Practitioner Family; Physician Assistant; ADMIT Student in an Organized Health Care Education/Training Program
DX: J70.0 Acute pulmonary manifestations due to radiation (principal); J96.21 Acute and chronic respiratory failure with hypoxia; C34.90 Malignant neoplasm of unspecified part of unspecified bronchus or lung; I50.20 Unspecified systolic (congestive) heart failure; I13.0 Hypertensive heart and chronic kidney disease with heart failure and stage 1 through stage 4 chronic kidney disease, or unspecified chronic kidney disease; E87.2 Acidosis; J44.9 Chronic obstructive pulmonary disease, unspecified; J84.10 Pulmonary fibrosis, unspecified; G47.33 Obstructive sleep apnea (adult) (pediatric); I27.20 Pulmonary hypertension, unspecified; I25.10 Atherosclerotic heart disease of native coronary artery without angina pectoris; I08.3 Combined rheumatic disorders of mitral, aortic and tricuspid valves; N18.9 Chronic kidney disease, unspecified; Z66 Do not resuscitate; E78.5 Hyperlipidemia, unspecified; R74.0 Nonspecific elevation of levels of transaminase and lactic acid dehydrogenase [LDH]; R53.81 Other malaise; Z79.01 Long term (current) use of anticoagulants; Z79.52 Long term (current) use of systemic steroids; Z79.82 Long term (current) use of aspirin; Z95.1 Presence of aortocoronary bypass graft; Z86.718 Personal history of other venous thrombosis and embolism; Z87.891 Personal history of nicotine dependence
CPT/HCPCS: 99223-AI; 99233-AI; 99239; C9113; J1940; J2543; J2920; J2930; J3370; J3430; J7030; J7050; J7512